=== PATIENT | female | born 1990 | race Asian ===

== ENCOUNTER 2019-05-01 15:47 | Emergency (ER) | payer OTHER ==
[~2019-05-01] VITALS: Ht 157.5 cm; Wt 52.2 kg
[2019-05-01 15:49] VITALS: BP 129/34
[2019-05-01 16:20] VITALS: BP 129/34
== END 2019-05-01 16:20 | disposition home or self-care (01) ==
LOC: MED 15:47
DX: A08.4 Viral intestinal infection, unspecified (principal)
CPT/HCPCS: 81002; 81025; 99283